=== PATIENT | male | born 1940 | race Caucasian/White ===

== ENCOUNTER 2019-01-01 06:02 | Inpatient (IN) ==
[2019-01-01 07:30] LABS: PROTIME 13.3 Seconds (11.0-16.0)
[2019-01-01 07:31] LABS: PTT 25.8 Seconds (22.3-41.8)
[2019-01-01] MEDS ORDERED: SALINE LOCK IV FLUID XX ONE (10:20)
[2019-01-01] MEDS ORDERED: ZOFRAN ODT PO PRN (11:19)
[2019-01-01] MEDS ORDERED: PERCOCET-10 PO PRN (11:19)
[2019-01-01 13:26] LABS: WBC BF 37838 /cumm
[2019-01-01 13:31] LABS: MONOS 26 %; POLYS 74 %
[2019-01-01 16:30] LABS: BODY FLUID SOURCE MISCELLANEOUS
[2019-01-01] MEDS ORDERED: SEROQUEL PO SCH (21:00)
[2019-01-01] MEDS ORDERED: REMERON PO SCH (21:00)
[2019-01-02] MEDS ORDERED: HEPARIN IV PRN (06:46)
[2019-01-02] MEDS ORDERED: TIGHT: 0.2 ML/HR FOR DIALYSIS MISC PRN (06:46)
[2019-01-02] MEDS ORDERED: NS 2,000 ML MISC PRN (06:46)
[2019-01-02 07:24] LABS: BASO# 0.03 X1000 (0.0-0.2); BASO% 0.5 % (0.0-0.8); EOS# 0.25 X1000 (0.0-0.7); EOS% 4.3 % (0.0-10.0); HEMATOCRIT 27.6 % (42.0-52.0); HEMOGLOBIN 8.4 g/dL (14.0-18.0); IMM GRAN# 0.06 X1000 (0.0-0.04); LYMPH# 1.45 X1000 (1.2-3.4); LYMPH% 24.9 % (20.5-51.1); MCH 30.9 PG (27-31); MCHC 30.4 g/dL (33-37); MCV 101.5 FL (81-99); MONO# 0.44 X1000 (0.11-0.59); MONO% 7.6 % (1.7-9.3); MPV 11.2 FL (7.4-10.4); NEUT# 3.59 X1000 (1.4-6.5); NEUT% 61.7 % (42.2-75.2); PLT 205 X1000 (130-400); RBC 2.72 XMIL (4.7-6.1); WBC 5.82 X1000 (4.8-10.8)
[2019-01-02 07:29] LABS: CALCIUM 7.6 mg/dL (8.8-10.2)
[2019-01-02 07:58] LABS: POTASSIUM 6.8 mmol/L (3.5-5.1)
[2019-01-02 07:59] LABS: CREATININE 10.6 mg/dL (0.7-1.2)
[2019-01-02] MEDS ORDERED: WELLBUTRIN PO SCH (09:00)
[2019-01-02] MEDS ORDERED: FERROUS SULFATE PO SCH (09:00)
[2019-01-02] MEDS ORDERED: PROTONIX PO SCH (09:00)
[2019-01-02] MEDS ORDERED: LINZESS PO SCH (09:00)
[2019-01-02] MEDS ORDERED: VITAMIN D PO SCH (09:00)
[2019-01-02] MEDS ORDERED: ZANAFLEX PO SCH (09:00)
[2019-01-02 11:10] VITALS: BP 134/53
== END 2019-01-02 12:07 | disposition home or self-care (01) ==
LOC: CT 06:02 → 4N 06:36
PROVIDERS: ADMIT Urology; ATTEND Urology